=== PATIENT | female | born 1930 | race Caucasian/White ===

== ENCOUNTER 2017-03-02 13:37 | Emergency (ER) | payer OTHER ==
[2017-03-02 13:37] VITALS: BMI 27.8
[2017-03-02 13:42] VITALS: RESP 16; TEMP 96.5
--- NOTE | 2017-03-02 14:48 | ED PDOC ---
Upper Extremity Pain/Injury Time Seen by Provider: 03/02/17 13:45 Chief Complaint (Nursing): Upper Extremity Problem/Injury History Per: Patient, Family (86 yo female with PMHx significant for Lupus, Interstitial Fibrosis, and Osteoporosis presents to the ED with a 3 day history for worsening bilateral shoulder pain. She describes the pain as dull and shooting towards elbows, 9/10 in intensity, exacerbated by movement, alleviated at rest and minimally relieved by Percocet. Daughter states that she has bene immobolized by the pain and does not get out of bed. Denies kneck pain/ stiffness, weakness in extremities, loss of bladder or bowels, numbness or tingling, fever, chills, cough, or recent trauma. ) Onset/Duration Of Symptoms: Intermittent Episodes Current Symptoms Are (Timing): Gone Now (Pt denies having pain now as she is at rest) Past Medical History Vital Signs: Last Vital Signs Temp 96.5 F L 03/02/17 13:40 Pulse 86 03/02/17 13:40 Resp 16 03/02/17 13:40 BP 103/52 L 03/02/17 13:40 Pulse Ox 96 03/02/17 13:40 - Medical History PMH: COPD, Gastritis, Osteoporosis Denies: Back Problems, Fractures, Malignancy, Chronic Kidney Disease, Rheumatoid Arthritis Other PMH: Lupus, Interstitial fibrosis - Surgical History Surgical History: Cholecystectomy - Family History Family History: States: No Known Family Hx, Other Other Family History: Mother has Hx of osteoporosis, and unknown malignancy - Living Arrangements Living Arrangements: With Family (Lives with daughter and grandaughter) - Social History Ex-Smoker (has not smoked in the last 12 months): Yes (Quit smoking 15+ years ago. Prior -30pack year) Alcohol: None Drugs: Denies - Home Medications Home Medications: Ambulatory Orders Medication Instructions Recorded Aspirin [Aspirin Chewable] 81 mg PO DAILY 03/06/15 Brinzolamide [Azopt 15 ml] 10 ml PO DAILY 03/06/15 Gabapentin [Neurontin] 300 mg PO BID 03/06/15 Hydroxychloroquine Sulfate 200 mg PO DAILY 03/06/15 [Plaquenil] Levothyroxine Sodium 0.05 mg PO DAILY 03/06/15 [Levothyroxine] Loteprednol Etabonate [Alrex 10 ml] 10 ml PO DAILY 03/06/15 Omeprazole [Prilosec] 20 mg PO DAILY 03/06/15 Prednisone [Prednisone] 20 mg PO BID 03/06/15 Cyclobenzaprine [Cyclobenzaprine 10 mg PO TID PRN #15 tab 03/02/17 HCl] - Allergies Allergies/Adverse Reactions: Allergies Allergy/AdvReac Type Severity Reaction Status Date / Time No Known Allergies Allergy Verified 03/02/17 13:40 Review of Systems ROS Statement: Except As Marked, All Systems Reviewed And Found Negative Constitutional: Positive for: Weight loss (Daughter reports 9lb inintentional weight loss over the past 3 months). Negative for: Fever, Chills, Weakness ENT: Negative for: Throat Pain, Throat Swelling Cardiovascular: Negative for: Chest Pain, Palpitations, Edema Respiratory: Positive for: Shortness of Breath (Daughter reports noticing her mothers breathing is more labored than usual. Patient denies difficulty breathing). Negative for: Cough, Hemoptysis, Wheezing Gastrointestinal: Negative for: Nausea, Vomiting, Abdominal Pain, Diarrhea Genitourinary Female: Negative for: Dysuria, Frequency, Hematuria Musculoskeletal: Positive for: Shoulder Pain. Negative for: Neck Pain, Back Pain, Hand Pain, Leg Pain Neurological: Negative for: Weakness, Numbness, Headache Physical Exam - Reviewed Nursing Documentation Reviewed: Yes Vital Signs Reviewed: Yes - Physical Exam Appears: Positive for: Well (Pt is cachectic elderly woman seen lying in the bed with arms at the side; ), Non-toxic, No Acute Distress Head Exam: Positive for: ATRAUMATIC, NORMAL INSPECTION, NORMOCEPHALIC Skin: Positive for: Normal Color, Warm, DRY Eye Exam: Positive for: EOMI, Normal appearance, PERRL ENT: Positive for: Normal ENT Inspection Neck: Positive for: Normal, Painless ROM. Negative for: Limited ROM, Pain On Movement Of Neck Cardiovascular/Chest: Positive for: Regular Rate, Rhythm. Negative for: Edema Respiratory: Positive for: Normal Breath Sounds, Crackles (Fine inspiratory crackles most prominent at the lung bases). Negative for: Decreased Breath Sounds, Accessory Muscle Use, Rhonchi, Stridor, Wheezing, Respiratory Distress Pulses-Radial (L): 2+ Pulses-Radial (R): 2+ Gastrointestinal/Abdominal: Positive for: Normal Exam, Bowel Sounds, Soft Back: Positive for: Normal Inspection Extremity: Positive for: Normal ROM Neurologic/Psych: Positive for: Alert, Oriented - Laboratory Results Result Diagrams: 03/02/17 15:00 03/02/17 15:00 - ECG O2 Sat by Pulse Oximetry: 96 - Progress Re-evaluation Time: 16:02 (Patient reaxmined after recieving pain medication. Seen lying in bed comfortble. States she "feels much better" and has no complaints. ) Condition: Improved Medical Decision Making Medical Decision Makin yo female with PMHx of Lupus, Osteoporosis, and Interstitial Fibrosis presets to ED with intermittent bilateral shoulder pain. Plan: Flexeril (cyclobenzaprine) 10mg PO x1 Morphine 2mg IV x1 CBC CMP Left and Right Shoulder Xray Cercival Spine CT w/o contrast Disposition - Clinical Impression Clinical Impression: Bilateral shoulder pain - Disposition Disposition: Routine/Home Disposition Time: 17:21 Condition: IMPROVED Prescriptions: Cyclobenzaprine [Cyclobenzaprine HCl] 10 mg PO TID PRN #15 tab PRN Reason: Pain Instructions: Arthralgia (ED), Shoulder Pain (ED) Forms: [employer] (Turkish) Print Language: TAJIK Physical Exam - Physical Exam Shoulder Exam: normal inspection ( Tender to palpation of anterolateral shouders bilaterally), no evidence of injury (No ecchymosis, swelling, asymmetry ), limited ROM (Abduction, External and Internal rotation were fully limited ) Elbow/Forearm Exam: normal inspection (normal ROM) Wrist Exam: normal inspection (normal ROM) Hand Exam: normal inspection (normal ROM) Neuro/Tendon: normal sensation, normal motor functions
--- NOTE | 2017-03-02 15:16 | RAD ---
PROCEDURE: Radiographs of the Right Shoulder HISTORY: Pain COMPARISON: No prior. FINDINGS: BONES: There is diffuse bone demineralization. There is no acute displaced fracture or bone destruction. Bone alignment is normal. JOINTS: There is mild degenerative osteoarthrosis in the acromioclavicular joint. The glenohumeral joint is normal. SOFT TISSUES: Normal. OTHER FINDINGS: There is right pleural thickening and diffuse interstitial disease in the visualized right lung. IMPRESSION: No acute displaced fracture or dislocation. Mild degenerative osteoarthrosis in the acromioclavicular joint.
--- NOTE | 2017-03-02 15:17 | RAD ---
PROCEDURE: Radiographs of the Left Shoulder HISTORY: Pain COMPARISON: No prior. FINDINGS: BONES: There is diffuse bone demineralization. There is no acute displaced fracture or bone destruction. Bone alignment is normal. JOINTS: There is mild degenerative osteoarthrosis in the acromioclavicular joint. The glenohumeral joint is normal. SOFT TISSUES: Normal. OTHER FINDINGS: There is diffuse interstitial thickening in the visualized lungs consistent with known interstitial pulmonary fibrosis. IMPRESSION: No acute fracture or dislocation. Mild degenerative osteoarthrosis in the acromioclavicular joint.
[2017-03-02 15:29] LABS: ALB/GLOB RATIO 0.9 (1.0-2.1); ALKALINE PHOSPHATASE 80 U/L (38-126); ALT/SGPT 12 U/L (9-52); AST/SGOT 27 U/L (14-36); BLOOD UREA NITROGEN 15 mg/dl (7-17); CALCIUM 9.4 mg/dL (8.4-10.2); CARBON DIOXIDE 27 mmol/L (22-30); CHLORIDE 103 mmol/L (98-107); GFR AFRICAN-AMERICAN > 60; GLUCOSE,RANDOM 131 mg/dL (65-105); SODIUM 138 mmol/l (132-148); TOTAL PROTEIN 8.3 G/DL (6.3-8.2)
[2017-03-02 15:32] LABS: BILIRUBIN,TOTAL 0.6 mg/dl (0.2-1.3)
[2017-03-02 15:45] LABS: BASO % 0.5 % (0.0-2.0); EOS # 0.3 K/uL (0.0-0.7); EOS % 4.7 % (0.0-4.0); HEMATOCRIT 33.7 % (34.0-47.0); LYMPH # 1.3 K/uL (1.0-4.3); LYMPH % 19.3 % (20.0-40.0); MEAN CELL VOLUME 93.8 fl (81.0-99.0); MEAN CORPUSCULAR HEMOGLOBIN 30.2 pg (27.0-31.0); MEAN CORPUSCULAR HGB CONC 32.2 g/dL (33.0-37.0); MEAN PLATELET VOLUME 8.5 fl (7.2-11.7); MONO # 0.6 K/uL (0.0-0.8); MONO % 8.8 % (0.0-10.0); NEUT # 4.6 K/uL (1.8-7.0); NEUT % 66.7 % (50.0-75.0); NRBC % 0.1 % (0.0-0.0); WHITE BLOOD COUNT 6.9 K/uL (4.8-10.8)
--- NOTE | 2017-03-02 16:13 | CT ---
PROCEDURE: CT Cervical Spine without contrast HISTORY: Pain COMPARISON: None available. TECHNIQUE: Axial computed tomography images were obtained of the cervical spine without the use of intravenous contrast. Coronal and sagittal reformatted images were created and reviewed. Radiation dose: Total exam DLP = 260.65 mGy-cm. This CT exam was performed using one or more of the following dose reduction techniques: Automated exposure control, adjustment of the mA and/or kV according to patient size, and/or use of iterative reconstruction technique. FINDINGS: VERTEBRAE: There is mild degenerative retrolisthesis of C3 on C4 and C4 on C5. There is normal cervical lordosis. Vertebral height is normal. There is diffuse bone demineralization. There is no acute fracture or spondylolisthesis. The craniocervical junction is normal. There is mild degenerative osteoarthrosis at the atlantoaxial joint. DISCS/SPINAL CANAL/NEURAL FORAMINA: There is mild multilevel degenerative disc disease due to combination of disc osteophyte complexes, uncovertebral joint hypertrophy and multilevel facet arthropathy, worse at C3-4 with moderate right and mild left neural foraminal stenosis. No spinal canal stenosis. PARASPINAL SOFT TISSUES: Unremarkable. OTHER FINDINGS: There is extensive biapical pleural parenchymal scarring, worse on the right. IMPRESSION: No acute fracture or spondylolisthesis. Mild multilevel degenerative disc disease, worse at C3-4 with moderate right and mild left neural foraminal stenosis. No spinal canal stenosis.
[2017-03-02 17:26] VITALS: BP 110/60; PULSE 80; O2SAT 98
== END 2017-03-02 17:27 | disposition home or self-care (01) ==
LOC: H.ER 13:37
DX: M19.012 Primary osteoarthritis, left shoulder (principal); M32.9 Systemic lupus erythematosus, unspecified; J84.10 Pulmonary fibrosis, unspecified; M81.0 Age-related osteoporosis without current pathological fracture; Z79.82 Long term (current) use of aspirin
CPT/HCPCS: 72125; 73030; 80053; 85025; 96374; 99282; J2270